=== PATIENT | male | born 1985 | race Hispanic/Latino ===

== ENCOUNTER 2018-03-18 18:40 | Emergency (ER) | payer SELFPAY ==
[2018-03-18] MEDS ORDERED: Clindamycin 150 MG CAP ONE (19:21)
== END 2018-03-18 19:27 | disposition home or self-care (01) ==
LOC: EDBD 18:40 → MADERS 18:40
DX: L03.116 Cellulitis of left lower limb (principal); E11.9 Type 2 diabetes mellitus without complications; I10 Essential (primary) hypertension; F32.9 Major depressive disorder, single episode, unspecified; Z79.84 Long term (current) use of oral hypoglycemic drugs
CPT/HCPCS: 99283